=== PATIENT | male | born 1990 | race Caucasian/White ===

== ENCOUNTER 2016-10-11 23:34 | Emergency (ER) | payer OTHER ==
[2016-10-11 23:45] VITALS: BP 136/66; PULSE 121; RESP 17; O2SAT 100
--- NOTE | 2016-10-11 23:51 | ED.REPORT ---
HPI-General Illness Date of Service Oct 11, 2016 ED Provider: Rikki Santa MD Patient is a 26 year old male with a history of hypertension and polysubstance abuse who presents to the ED after an accidental heroin overdose just prior to arrival. Patient suddenly went unconscious and fell to the ground, witnessed by friends, with the patient reportedly hitting his head. Patient was found by EMS laying in a puddle in a driveway, unresponsive with apnea. CPR was started on the patient, and he was described as immediately responsive to that.. Patient was given 0.5 Narcan IV by EMS. Patient is alert on arrival to the ED. The patient admits to using heroin nearly daily and that he has previously overdosed on heroin. Patient believes he used his regular dose of heroin tonight and states that he is withdrawing on arrival to the ED. Patient states he is feeling unwell and presents to the ED tachycardic and shivering. Patient states that he is very stressed and he is working two jobs, including one as a nurse. Every time he tries to quit using heroin, he ends up relapsing. Patient also admits to drinking alcohol this evening. Prior ED visits show patient has a history of polysubstance abuse. Patient is on Lisinopril for hypertension and metoprolol for an intermittent dysrhythmia. Nursing Notes Stated Complaint: OVERDOSE Chief Complaint: Substance Abuse Nursing Notes Reviewed: Yes Allergies: Coded Allergies: No Known Allergies (Verified Allergy, Unknown, 04/13/14) Scheduled Lisinopril (Lisinopril) 10 Mg Tablet 10 MG PO DAILY Metoprolol Tartrate (Metoprolol Tartrate) 50 Mg Tablet 50 MG PO BID Scheduled PRN Clonidine (Clonidine) 0.2 Mg Tablet 0.2 MG PO BID PRN PRN Withdrawal Symptoms Ondansetron ODT (Ondansetron ODT) 8 Mg Tab.rapdis 8 MG PO QID PRN PRN For Nausea General Time Seen by MD: 23:39 Chief Complaint Other (accidental heroin overdose) Hx Obtained From: Patient, EMS Arrived By: Ambulance Sudden in Onset?: No Onset Occurred: Just prior to arrival Severity: Current: No pain currently Severity: Maximum: No pain Recent Healthcare: No recent doctor visit, No recent hospitalization Similar Sx Previous: Yes Past Medical History Past Medical History dysrhythmia IV heroin abuse Reports: Hypertension Past Surgical History left leg surgery Smoking History Former Smoker Social History Alcohol Use: "Social" Drug Use: IV drugs, THC Other Social History: Good social support, Local resident Ambulatory Status Independent Review of Systems + decreased respirtory effort Full Review of Systems Constitutional: Reports: Chills, Denies: Fever Cardiovascular: Reports: Palpitations, Denies: Chest pain Neurologic: Reports: Change LOC, Headache (head trauma) Complete sys rev & neg: except as marked. Physical Exam Vital Signs Vital Signs Date Time Temp Pulse Resp B/P Pulse Ox O2 Delivery O2 Flow Rate FiO2 10/12/16 02:07 36.2 137 18 115/67 96 Room Air 10/12/16 01:02 36.1 126 16 121/60 100 Room Air 10/11/16 23:45 35.2 121 17 136/66 100 Nasal Cannula 2 Initial VS: Reviewed Neurologic: Alert, Oriented, Nonfocal Psychiatric: Mood/affect normal, Behavior normal, Normal thought content General/Constitutional: Awake, Alert, No acute distress Behavior: Positive: Tearful wet and cold Head / Eyes: Normocephalic, PERRL (5mm and reactive), EOMI ENT: Airway patent Neck: Supple, Full range of motion Respiratory / Chest: Breath sounds NL, Breath sounds = bilat, No respiratory distress, No rales, No rhonchi, No wheezing Cardiovascular: Regular rhythm, Heart sounds NL Heart Rate / Rhythm: Positive: Tachycardia Abdomen: Soft, Non-tender, No guarding, No rebound Upper Extremities Upper Extremity / MS: Atraumatic, Full range of motion, No deformity Lower Extremity / Pelvis / MS: Atraumatic, Full range of motion, No deformity Skin: Color NL, No rash Rash / Lesion Pattern: Positive: Track mcconnell (from IVDA) patient is cold and wet Interpretation & Diagnostics Lab Results Interpretation Result Diagram: 10/12/16 0000 10/12/16 0000 Test 10/11/16 23:40 10/12/16 00:00 Hold Purple Top Tube Received (Received) Hold Blue Top Tube Received (Received) Hold Red Top Tube Received (Received) Hold [place] Top Tube Received (Received) White Blood Count 18.4th/mm3 (3.8-10.1) Red Blood Count 4.62mil/mm3 (4.40-5.80) Hemoglobin 14.9g/dL (13.8-17.2) Hematocrit 43.0% (41.0-50.0) Mean Corpuscular Volume 93.1fL (81-100) Mean Corpuscular Hemoglobin 32.3pg (27.0-35.0) Mean Corpuscular Hemoglobin Concent 34.7% (32.0-37.0) Red Cell Distribution Width 12.0% (12.3-15.4) Platelet Count 485bil/L (150-400) Neutrophils (%) (Auto) 35.8% (40-74) Lymphocytes (%) (Auto) 52.5% (14-46) Monocytes (%) (Auto) 9.3% (4-12) Eosinophils (%) (Auto) 1.3% (0-5) Basophils (%) (Auto) 0.8% (0-3) Sodium Level 138mEq/L (134-144) Potassium Level 3.1mEq/L (3.5-5.2) Chloride Level 97mEq/L (97-108) Carbon Dioxide Level 22mmol/L (18-29) Blood Urea Nitrogen 8mg/dL (6-20) Creatinine 0.95mg/dL (0.76-1.27) Estimat Glomerular Filtration Rate 100mL/min (>59) Glucose Level 245mg/dL (60-99) Calcium Level 8.6mg/dL (8.5-10.1) Total Bilirubin 0.2mg/dL (0.0-1.2) Aspartate Amino Transf (AST/SGOT) 23U/L (0-50) Alanine Aminotransferase (ALT/SGPT) 21U/L (0-44) Alkaline Phosphatase 70U/L (25-150) Total Protein 7.9g/dL (6.4-8.4) Albumin 4.3g/dL (3.4-5.0) Alcohol, Quantitative 164mg/dL (0-10) ECG Interpretation ECG Interpretation: Sinus tachycardia, Rate 126 Incomplete right bundle branch block Time: 23:43 Interpreted by: ED physician Re-Eval/Medical Decision Med Decision/Clinical Course 18-year-old man with history of IV heroin abuse presents after an overdose. He was given 0.5 mg of Narcan in the field, and observed here for more than two hours. He has remained awake and alert, is ambulatory, and in no distress. A home use Narcan Was provided. He is strongly encouraged to seek help to discontinue heroin abuse. Clonidine provided if needed. Follow up with PCP. Referred to Dr. Scott from the call list for local practitioner. Source of Hx: Old records Time of Eval: 00:31 Re-Evaluation/Progress Note: Rechecked the patient, who is now joined by friends. Discussed the events of tonight further. Patient remains stable. Time of Eval: 01:38 Patient Status: Condition improved Re-Evaluation/Progress Note: Patient remains awake and alert. He falls asleep but maintains good respiratory effort. He awake easily. Patient is able to ambulate in the ED without assistance. Time of Eval: 01:51 Patient Status: Condition improved Re-Evaluation/Progress Note: Patient remains awake and alert. Will discharge with Narcan. No acute problem on labs. Patient no longer has a PCP and needs a refill on his prescriptions. He will also receive PCP referral. Patient understands and agrees with the plan to be discharged home. Discharge instructions and follow-up discussed. All questions were addressed. Return to the ED warnings given. Counseled Regarding: Diagnosis, Lab results, Need for follow-up, When/why to return to ED Discharge & Departure Primary Impression: Accidental heroin overdose Encounter type: initial encounter Qualified Code: T40.1X1A - Poisoning by heroin, accidental (unintentional), initial encounter Additional Impression: Alcohol abuse Disposition: Home Discharge Condition All VS Reviewed: Yes Condition: Stable Patient Instructions: Naloxone (Injection), Narcotic Abuse (ED) Additional Instructions: Stop using heroin Clonidine taken twice daily can help with the withdrawal symptoms. Zofran four times daily if needed for nausea. You may follow-up at [facility] for support with Suboxone if you wish. Return if any immediate issues. Keep your Narcan/naloxone available for use by your family and friends in case of overdose. Referrals: Edda Scott MD Attestation Portions of this note were transcribed by Farheen Reagan. I, Dr. Santa personally performed the history, physical exam and medical decision-making; I reviewed and confirmed the accuracy of the information in the transcribed note. Signed by: Marjorie Martins, 10/12/2016 0205 copies to: Edda Scott MD, Christopher W MD Oct 11, 2016 23:51 Farheen Reagan Oct 12, 2016 00:02
[2016-10-12 00:20] LABS: BASOPHILS % (AUTO) 0.8 % (0-3); EOSINOPHILS % (AUTO) 1.3 % (0-5); MONOCYTES % (AUTO) 9.3 % (4-12); Mean Corpuscular Hemoglobin 32.3 pg (27.0-35.0); Mean Corpuscular Volume 93.1 fL (81-100); NEUTROPHILS % (AUTO) 35.8 % (40-74); Platelet Count 485 bil/L (150-400)
--- NOTE | 2016-10-12 00:53 | NUR ---
[facility] Note Patient appears alert and oriented. Staff introduced themselves as [facility] and asked how he was doing. Patient stated he felt embarrassed and applologized to staff and friends multiple times. Patient said that he was doing "so so" and wanted to go home. He expressed concern regarding routine medication (blood-pressure) that he had been taking and he also expressed concern regarding falling asleep after the medication we had administered to counteract the heroine wore off. Patient was assured that we would let him rest but make sure he was safe to which both he and his friends appeared calmed by. He remains calm and oriented.
[2016-10-12 01:02] VITALS: BP 121/60; PULSE 126; RESP 16; O2SAT 100
[2016-10-12] MEDS ORDERED: ONDA8TAB10 PO (01:45)
[2016-10-12] MEDS ORDERED: CLON0.2T PO (01:45)
[2016-10-12] MEDS ORDERED: _Naloxone 2 mg/2 mL 2 Syringe Kit (NASAL USE) NASAL PRN (01:45)
[2016-10-12] MEDS ORDERED: METO50TA3 PO (01:57)
[2016-10-12] MEDS ORDERED: LISI10TA PO (01:57)
[2016-10-12 02:07] VITALS: BP 115/67; PULSE 137; RESP 18; O2SAT 96
== END 2016-10-12 02:08 | disposition home or self-care (01) ==
LOC: EDBD 23:34 → EDUNIT# 23:34 → SED 23:34
DX: T40.1X1A Poisoning by heroin, accidental (unintentional), initial encounter (principal); W18.39XA Other fall on same level, initial encounter; Y93.89 Activity, other specified; Y92.89 Other specified places as the place of occurrence of the external cause; Y99.8 Other external cause status; F10.129 Alcohol abuse with intoxication, unspecified; R00.0 Tachycardia, unspecified; R25.1 Tremor, unspecified; F43.9 Reaction to severe stress, unspecified; I49.9 Cardiac arrhythmia, unspecified; I10 Essential (primary) hypertension; Z87.891 Personal history of nicotine dependence
CPT/HCPCS: 36415; 80053; 85025; 93005; 99284; G0480

== ENCOUNTER 2016-11-18 00:41 | Emergency (ER) | payer SELFPAY ==
[~2016-11-18] VITALS: Ht 185.4 cm; Wt 77.3 kg
[~2016-11-18 00:41] MED LIST: CLON0.2T PO; LISI10TA PO; METO50TA3 PO; ONDA8TAB10 PO
[2016-11-18 00:46] VITALS: BP 149/103; PULSE 81; RESP 16; O2SAT 98
--- NOTE | 2016-11-18 00:52 | ED.REPORT ---
HPI-General Illness Date of Service Nov 18, 2016 ED Provider: Dr. Michelet Zaldivar D.O. A 26 year old male with a medical history including dysrhythmia, seizures, hypertension, and polysubstance abuse presents to the ED with chest pressure onset just prior to arrival. The patient also reports dark urine production. He admits to using methamphetamines and drinking alcohol today. Nursing Notes Stated Complaint: GENERAL COMPLAINT Chief Complaint: General Complaint Nursing Notes Reviewed: Yes Allergies: Coded Allergies: No Known Allergies (Verified Allergy, Unknown, 11/18/16) Scheduled Lisinopril (Lisinopril) 10 Mg Tablet 10 MG PO DAILY Metoprolol Tartrate (Metoprolol Tartrate) 50 Mg Tablet 50 MG PO BID Scheduled PRN Clonidine (Clonidine) 0.2 Mg Tablet 0.2 MG PO BID PRN PRN Withdrawal Symptoms Ondansetron ODT (Ondansetron ODT) 8 Mg Tab.rapdis 8 MG PO QID PRN PRN For Nausea General Time Seen by MD: 00:52 Chief Complaint Other (Chest Pressure) Hx Obtained From: Patient Arrived By: Walk-in Sudden in Onset?: Yes Onset Occurred: Just prior to arrival Symptom Duration: Since onset Location: : Chest Quality: Pressure Severity: Current: Mild Severity: Maximum: Mild Associated with: Denies: Fever Pertinent Negative: Relieved by nothing Context Related History: Reports Drug use/abuse suspected, Reports Seizure disorder Recent Healthcare: No recent doctor visit Similar Sx Previous: No Past Medical History Past Medical History Dysrhythmia IV heroin abuse Heroin overdose Alcohol abuse Seizures Hypertension Past Surgical History Left leg surgery Smoking History Former Smoker Social History Alcohol Use: "Social" Drug Use: IV drugs, Meth, THC Other Social History: Good social support, Local resident Ambulatory Status Independent Review of Systems + dark urine Full Review of Systems Constitutional: Denies: Fever Eyes: Denies: Blurred left, Blurred right Respiratory: Denies: Non-productive cough, Shortness of breath Cardiovascular: Reports: Chest pain (Pressure) GI: Denies: Vomiting Male: Reports Urination decreased, Denies Dysuria, Denies Flank pain Musculoskeletal: Denies: Back pain, Joint pain, Neck pain Skin: Denies Diaphoresis Neurologic: Denies: Abnormal movement Psychiatric: Reports: Anxiety Complete sys rev & neg: except as marked. Physical Exam Vital Signs Vital Signs Date Time Temp Pulse Resp B/P Pulse Ox O2 Delivery O2 Flow Rate FiO2 11/18/16 04:51 86 15 135/75 98 Room Air 11/18/16 00:46 36.1 81 16 149/103 98 Room Air Initial VS: Reviewed Head / Eyes: Atraumatic, Normocephalic ENT: Conjunctiva normal, No scleral icterus Neck: Supple, Full range of motion Respiratory: Breath sounds normal, Clear to auscultation, No respiratory distress Cardiovascular: Regular rate & rhythm, Heart sounds normal Skin: Warm, Dry, No cyanosis Neurologic: Alert, Oriented, Nonfocal Psychiatric: Mood/affect normal, Behavior normal, Normal thought content General/Constitutional: Awake, Alert Twitchy Interpretation & Diagnostics Lab Results Interpretation Result Diagram: 11/18/16 0148 11/18/16 0148 Test 11/18/16 01:48 11/18/16 04:05 White Blood Count 7.7th/mm3 (3.8-10.1) Red Blood Count 4.68mil/mm3 (4.40-5.80) Hemoglobin 14.8g/dL (13.8-17.2) Hematocrit 42.2% (41.0-50.0) Mean Corpuscular Volume 90.2fL (81-100) Mean Corpuscular Hemoglobin 31.6pg (27.0-35.0) Mean Corpuscular Hemoglobin Concent 35.1% (32.0-37.0) Red Cell Distribution Width 11.6% (12.3-15.4) Platelet Count 395bil/L (150-400) Neutrophils (%) (Auto) 49.4% (40-74) Lymphocytes (%) (Auto) 38.8% (14-46) Monocytes (%) (Auto) 10.1% (4-12) Eosinophils (%) (Auto) 1.2% (0-5) Basophils (%) (Auto) 0.4% (0-3) D-Dimer < 0.5mg/L (<0.50) Sodium Level 138mEq/L (134-144) Potassium Level 4.6mEq/L (3.5-5.2) Chloride Level 99mEq/L (97-108) Carbon Dioxide Level 27mmol/L (18-29) Blood Urea Nitrogen 12mg/dL (6-20) Creatinine 0.84mg/dL (0.76-1.27) Estimat Glomerular Filtration Rate 116mL/min (>59) Glucose Level 103mg/dL (60-99) Calcium Level 8.9mg/dL (8.5-10.1) Total Bilirubin 0.2mg/dL (0.0-1.2) Aspartate Amino Transf (AST/SGOT) 29U/L (0-50) Alanine Aminotransferase (ALT/SGPT) 29U/L (0-44) Alkaline Phosphatase 79U/L (25-150) Total Creatine Kinase 143U/L (21-232) Total Protein 7.8g/dL (6.4-8.4) Albumin 4.3g/dL (3.4-5.0) Hold [place] Top Tube Received (Received) Troponin T 0.010ug/L (0.0-0.011) ECG Interpretation ECG Interpretation: Sinus rhythm rate 80 Time: 01:05 Interpreted by: ED physician Re-Eval/Medical Decision Med Decision/Clinical Course 26-year-old male with history of polysubstance abuse presents after abusing methamphetamines. The young lady who accompanies him states that he looked ill after using the mask and she prompted him to come in. He complains now of his heart racing. He plans on checking himself into inpatient rehabilitation in [facility] soon. He also complains of some muscular aches and pains. The chest pain has resolved. Was hypertensive on presentation and this came down with observation. I recommended IV fluids and IV Valium for anxiety type symptoms. Laboratory work is reassuring. D-dimer was negative. Serial troponins were negative. EKG is without signs of ischemia. Acute myocardial infarction, aortic dissection and pulmonary emboli all considered to be very unlikely. Patient observed and after IV fluids he looked and felt better. We will discharge home with close outpatient follow-up. Source of Hx: Old records Time of Eval: 03:02 Patient Status: Condition improved Re-Evaluation/Progress Note: Discussed with patient lab results, diagnosis, and plan for repeat labs and probable discharge. Follow-up and return to the ER instructions given. Patient agrees with plan for care and all questions were addressed. Counseled Regarding: Diagnosis, Lab results, Need for follow-up, When/why to return to ED Discharge & Departure Primary Impression: Chest pain Chest pain type: unspecified Qualified Code: R07.9 - Chest pain, unspecified Additional Impression: Methamphetamine abuse Disposition: Home Discharge Condition All VS Reviewed: Yes Condition: Stable Patient Instructions: Chest Pain (ED), Methamphetamine Abuse (ED) Additional Instructions: I strongly recommended to abstain from abusing drugs including and not limited to amphetamine/methamphetamines. I do encourage YOU to follow through with the inpatient rehabilitation program. Do not drink any alcohol tonight as you have received sedating medications. Do not drive tonight. Do not ever operate machinery while under the influence of any mind altering substances. I would like you to contact YOUR primary care physician in the morning for a follow-up appointment. Return if any further symptoms. Drink plenty of liquids with electrolytes such as Gatorade. your cardiac enzymes were normal. You may need further workup of your chest pain syndrome so follow-up is essential. Referrals: [facility] (PCP) [facility] Scribe Attestation Portions of this note were transcribed by Patty Santos. I, Dr. Zaldivar, personally performed the history, physical exam, and medical decision-making; I reviewed and confirmed the accuracy of the information in the transcribed note. Signed by: Marjorie Le, 11/18/2016, 03:05 copies to: [facility] Michelet Zaldivar DO Nov 18, 2016 00:52 PATTY SANTOS Nov 18, 2016 01:32
[2016-11-18] MEDS ORDERED: 0.9% Sodium Chloride 1,000 ML IV SCH (01:25)
[2016-11-18 02:04] LABS: BASOPHILS % (AUTO) 0.4 % (0-3); EOSINOPHILS % (AUTO) 1.2 % (0-5); MONOCYTES % (AUTO) 10.1 % (4-12); Mean Corpuscular Hemoglobin 31.6 pg (27.0-35.0); Mean Corpuscular Volume 90.2 fL (81-100); NEUTROPHILS % (AUTO) 49.4 % (40-74); Platelet Count 395 bil/L (150-400)
[2016-11-18 02:49] LABS: TROPONIN T 0.01 ug/L (0.0-0.011)
[2016-11-18 04:51] VITALS: BP 135/75; PULSE 86; RESP 15; O2SAT 98
== END 2016-11-18 04:48 | disposition home or self-care (01) ==
LOC: SED 00:41
DX: R07.89 Other chest pain (principal); F15.10 Other stimulant abuse, uncomplicated; I10 Essential (primary) hypertension; Z87.891 Personal history of nicotine dependence

== ENCOUNTER 2016-11-26 14:44 | Emergency (ER) | payer OTHER ==
[~2016-11-26] VITALS: Ht 185.4 cm; Wt 81.8 kg
[2016-11-26 14:47] VITALS: BP 148/90; PULSE 111; RESP 16; O2SAT 97
[2016-11-26] MEDS ORDERED: Lidocaine 1%-Epi 1:100,000 20 mL Inj ONE (15:26)
--- NOTE | 2016-11-26 16:08 | ED.REPORT ---
HPI-General Illness Date of Service Nov 26, 2016 ED Provider: Tank Mccauley PA-C Zurdo is otherwise healthy 26-year-old male who presents with a laceration. States that he cut the palmar aspect of his fifth MCP joint with a clean kitchen knife shortly before presentation. Denies numbness, tingling, weakness , bleeding disorders. States he is up-to-date on his tetanus shot. Nursing Notes Stated Complaint: CUT ON LEFT HAND Chief Complaint: Extremity Trauma Nursing Notes Reviewed: Yes Allergies: Coded Allergies: No Known Allergies (Verified Allergy, Unknown, 11/26/16) Scheduled Lisinopril (Lisinopril) 10 Mg Tablet 10 MG PO DAILY Metoprolol Tartrate (Metoprolol Tartrate) 50 Mg Tablet 50 MG PO BID Scheduled PRN Clonidine (Clonidine) 0.2 Mg Tablet 0.2 MG PO BID PRN PRN Withdrawal Symptoms Ondansetron ODT (Ondansetron ODT) 8 Mg Tab.rapdis 8 MG PO QID PRN PRN For Nausea General Time Seen by MD: 15:04 Chief Complaint Laceration Past Medical History Past Medical History Dysrhythmia IV heroin abuse Heroin overdose Alcohol abuse Seizures Hypertension Past Surgical History Left leg surgery Smoking History Former Smoker Social History Alcohol Use: "Social" Drug Use: IV drugs, Meth, THC Other Social History: Good social support, Local resident Ambulatory Status Independent Review of Systems Negative unless stated otherwise in history of present illness Physical Exam General: Well appearing, well developed, well nourished, mild distress. Left hand: 2 cm gaping laceration palmar aspect of the fifth MCP joint. Full strength and range of motion of the MCP, PIP, DIP joints. Brisk capillary refill distal. Sensation intact. No indication of infection Head: Atraumatic, normocephalic. Eyes: No scleral icterus or injection. No discharge. Vision grossly intact. ENT: Voice clear, hearing grossly intact. Skin: Warm and dry. Neurological: Grossly nonfocal. Psychological: alert and oriented. Speech appropriate, linear and logical. Behavior appropriate. Vital Signs Vital Signs Date Time Temp Pulse Resp B/P Pulse Ox O2 Delivery O2 Flow Rate FiO2 11/26/16 14:47 36.6 111 16 148/90 97 Room Air Initial VS: Reviewed, Vital signs abnormal (tachycardia) Procedures Laceration Management Procedure Performed by: Allied health pract Consent / Setup / Site Prep: Informed consent provided, Consent from patient , Hand hygiene observed, Stand sterile technique Wound Length: 2 cm Local Anesthesia: Lidocaine w epi 1%, 2cc, 27g needle Wound Preparation: Other (wound cleanser) Debridement: None Foreign Body Explore / Removal: Explored for foreign body Repair Skin: Nylon (5-0) # Sutures - Skin: 6 Closure Layers: 1 Suture Technique: Simple Post-Procedure / Complications: Antibiotic oint applied, Dressing applied, No complications, Condition improved, Tolerated procedure well, Patient stable Re-Eval/Medical Decision Med Decision/Clinical Course Otherwise healthy 18-year-old male presents shortly after lacerating the palmar aspect of his fifth MCP joint with a clean kitchen knife. He reports tetanus shot is up-to-date. Full strength and range of motion in all joints, brisk capillary refill, sensation intact. Cleaned, sutured, dressed with antibiotic ointment. I see no indication for antibiotics as the wound is clean, the patient is healthy. Provided care instructions, follow-up instructions and return precautions. Patient appeared to understand and felt ready for discharge. Discharge & Departure Primary Impression: Laceration Disposition: Home Discharge Condition All VS Reviewed: Yes Condition: Stable Patient Instructions: Suture Care (ED) Additional Instructions: Evaluation of a laceration in the emergency department. This appears to be a straightforward, small laceration to her left hand, without foreign bodies or damage to the tendon. He reports he or up-to-date on your tetanus shot. I cleaned, sutured and dressed the wound. As we discussed because it is a clean wound and you are otherwise healthy I do not see an indication for prophylactic antibiotics at this time. The wound clean and dry for 24 hours. After that you can take off the dressing, wash with soap and water and reapply antibiotic ointment and dressing. Do not submerge the wound, as in doing dishes or swimming, until the sutures are removed in 7-10 days. This can be done either with your primary care provider or in the emergency department. Be vigilant for signs of infection such as increasing redness, swelling, pain and appearance of pus. If you notices this, follow-up with your primary care provider or return to the emergency department. Return emergency Department for new or worsening symptoms such as worsening pain, signs of infection, fever , feeling ill. Referrals: Dominique Mccoy DO (PCP) [facility] Provider for [facility]: Alvin Dorsey MD copies to: Dominique Mccoy Seth PA-C Nov 26, 2016 16:08
== END 2016-11-26 16:20 | disposition home or self-care (01) ==
LOC: SED 14:44
DX: S61.217A Laceration without foreign body of left little finger without damage to nail, initial encounter (principal); W26.0XXA Contact with knife, initial encounter; Y93.G1 Activity, food preparation and clean up; Y92.89 Other specified places as the place of occurrence of the external cause; Y99.8 Other external cause status; I10 Essential (primary) hypertension; Z98.890 Other specified postprocedural states; Z87.891 Personal history of nicotine dependence